=== PATIENT | male | born 1930 | race Caucasian/White ===

== ENCOUNTER 2017-07-15 08:08 | Day surgery (SDC) | payer OTHER ==
[2017-07-15 08:32] LABS: Absolute Lymphocytes (CBC) 3.5 K/uL (0.7-4.9); Absolute Monocytes 0.8 K/uL (0.1-1.3); Absolute Neutrophil 3.7 K/uL (1.8-8.0); Basophils % 0.6 % (0-1.3); Hematocrit 39.2 % (39.6-49.0); Lymphocytes % 40.8 % (15.3-44.8); MCH 29.7 pg (27.0-35.0); MCV 90.2 fL (80-100); Monocytes % 9.3 % (3.3-12.3); RBC Red Blood Cell Count 4.35 M/uL (4.33-5.43)
--- NOTE | 2017-07-15 08:56 | RAD REPORT ---
EXAM DESCRIPTION: Ziggy Vanegas (2 Views)07/15/2017 8:48 am CLINICAL HISTORY: Preop for knee surgery COMPARISON: May 02 FINDINGS: The lungs appear clear of acute infiltrate. The heart is normal size . Mild elevation rig ht hemidiaphragm is unchanged IMPRESSION: No acute abnormalities displayed
--- NOTE | 2017-07-15 08:58 | RAD REPORT ---
EXAM DESCRIPTION: RAD - Hand Right 2 View - 07/15/2017 8:48 am CLINICAL HISTORY: Right hand pain. 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 No dislocation is noted. Minimal narrowing involves DIP and PIP joints. Limited two view series was obtained
[2017-07-15] MEDS ORDERED: Ringers Lactate 1,000 ML IV ONE ×2 (09:04→12:23)
[2017-07-15] MEDS ORDERED: PROPOFOL 200 MG/20 ML VIAL IV ONE (09:20)
[2017-07-15] MEDS ORDERED: MIDAZOLAM HCL 2 MG/2 ML INJ ONE (09:20)
[2017-07-15] MEDS ORDERED: FENTANYL CITR 100 MCG/2 ML ONE (09:21)
[2017-07-15] MEDS ORDERED: EPHEDRINE SULF 50 MG/5 ML SYR ONE (10:17)
[2017-07-15] MEDS ORDERED: MINERAL OIL, LITE 10 ML VIAL ONE (10:32)
--- NOTE | 2017-07-15 10:35 | EKG ---
Test Date: 2017-07-15 Test Time: 09:02:16 Mental Retardation Aide: SCOTTY MEASUREMENT RESULTS: Intervals: Rate: 70 MD: 180 QRSD: 86 QT: 404 QTc: 436 Lamy: P: 54 MD: 180 QRS: 31 T: 190 INTERPRETIVE STATEMENTS: Normal sinus rhythm ST & T wave abnormality, consider inferolateral ischemia Abnormal ECG Compared to ECG 09/22/2011 09:55:15 ST (T wave) deviation now present Possible ischemia now present Sinus bradycardia no longer present Left ventricular hypertrophy no longer present Early repolarization no longer present Electronically Signed On 07-15-17 10:34:37 CDT by Sammy Silva
[2017-07-15] MEDS ORDERED: CLINDAMYCIN INJ 300 MG in NA CHLORIDE 0.9% 50 ML IV ONE (11:00)
[2017-07-15] MEDS ORDERED: MEPERIDINE HCL 50 MG/ML AMP ONE (13:39)
--- NOTE | 2017-07-16 00:35 | OP ---
Surgeon: Joesph Funk MD Care Director: Julio. 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 Procedure Performed: Excision of squamous cell carcinoma 3 x 2.5 cm with the flap closure, explant. Anesthesia: General. Procedure In Detail: After satisfactory induction of general anesthesia, the right hand was prepped with Betadine scrub, Betadine paint, dry sterile drapes applied in the usual manner. The arm was elevated, exsanguinated with an Esmarch, tourniquet inflated to 250 mmHg. Hand placed on a [place] table. Incision was made around the squamous cell carcinoma, which was proximal and radial over the right middle finger. It was incised and sent for frozen section which was positive at the deep as periphery. A repeat excision was taken down to the extensor tendon mechanism and sent for frozen. All lines of resection were clear. The patient had a transverse flap elevated overlying the metacarpals of the middle and ring finger. Flap was then rotated in position, sewn with 4-0 PDS sub q 4-0 prolene vertical mattress simple sutures, stapled with skin gideon. Dressed with Xeroform, 2-inch Kat, Kerlix and a splint holding the wrist in 10 degrees of dorsiflexion, MCP, PIP, and DIP 0. The patient tolerated the procedure well and returned to recovery. HAL/JOI Voice ID: [id number] Report ID: [id number] MIKE
== END 2017-07-15 15:55 | disposition home or self-care (01) ==
LOC: OR 08:08
PROVIDERS: ATTEND Specialist
PROC: 0HBFXZZ Excision of Right Hand Skin, External Approach (ICD-10-PCS; principal; 2017-07-15 10:45)
DX: C44.622 Squamous cell carcinoma of skin of right upper limb, including shoulder (principal); I10 Essential (primary) hypertension; J45.909 Unspecified asthma, uncomplicated; Z88.0 Allergy status to penicillin
CPT/HCPCS: 14040; 36415; 71046; 73120; 85025; 88305; 88331; 88332; 93005; J2175; J2250; J3010